=== PATIENT | female | born 1950 | race Caucasian/White ===

== ENCOUNTER → 2021-11-16 | Outpatient (CLI) | payer MEDICARE ==
[~2021-11-16] MED LIST: FLAGYL500 MG PO; GLUCOPHAGE1000 MG PO; HYDROCHLOROT TAB 25M PO; INVOKANA 100 M100 MG GT; INVOKANA 100 M100 MG PO; LIPITOR TAB 1010 MG PO; LOPRESSOR 25 MG25 MG PO; NORCO 5-325 TA1 EACH PO; OMNICEF 300 MG300 MG PO; ZOFRAN4 MG PO
== END ==
LOC: KOH-I 10:22
DX: M51.16 Intervertebral disc disorders with radiculopathy, lumbar region (principal); M51.17 Intervertebral disc disorders with radiculopathy, lumbosacral region
CPT/HCPCS: 72148

== ENCOUNTER 2021-12-21 09:30 | Emergency (ER) | payer MEDICARE ==
[~2021-12-21 09:30] MED LIST changes: +LOPRESSOR 50 MG50 MG PO
[2021-12-21] MEDS ORDERED: PREDNISONE20 MG PO (12:32)
== END 2021-12-21 13:47 | disposition home or self-care (01) ==
LOC: ER1 09:30
DX: M54.42 Lumbago with sciatica, left side (principal); G89.29 Other chronic pain; I48.91 Unspecified atrial fibrillation; E11.9 Type 2 diabetes mellitus without complications; Z79.84 Long term (current) use of oral hypoglycemic drugs; I10 Essential (primary) hypertension; Z88.0 Allergy status to penicillin; Z88.6 Allergy status to analgesic agent; Z79.899 Other long term (current) drug therapy
CPT/HCPCS: 82962; 99283

== ENCOUNTER → 2022-01-26 | Outpatient (CLI) | payer MEDICARE ==
[~2022-01-26] MED LIST changes: +PREDNISONE20 MG PO
== END ==
LOC: KOH-I 10:53
DX: M85.2 Hyperostosis of skull (principal)
CPT/HCPCS: 70450